=== PATIENT | female | born 1950 | race Caucasian/White ===

== ENCOUNTER 2020-04-27 08:47 | Outpatient (CLI) | payer MEDICARE, OTHER, SELFPAY ==
--- NOTE | ~2020-04-27 | XR_ITS ---
EXAMINATION: XR clavicle RT DATE: 04/27/2020 09:01 INDICATION: Hypertrophy of bone, right shoulder. TECHNIQUE: 2 views of right lateral were obtained. 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 The distal fracture fragment demonstrates 42 degrees inf erior angulation. The coracoclavicular interval is normal. The acromioclavicular joint is normal. IMPRESSION: 1. 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 Reviewed, dictated and finalized at location A. IMPRESSION: 1. 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
== END 2020-04-27 08:48 | disposition home or self-care (01) ==
LOC: ANHIMG 08:53
PROVIDERS: PCP Family Medicine; Visit Provider Family Medicine
DX: M89.311 Hypertrophy of bone, right shoulder (principal); M84.411A Pathological fracture, right shoulder, initial encounter for fracture
CPT/HCPCS: 73000